=== PATIENT | female | born 1940 | race Caucasian/White ===

== ENCOUNTER → 2017-01-27 | Outpatient (CLI) | payer MEDICARE, BC | END | disposition disaster alternative care site (69) | LOC: GRAD 13:20 | DX: C91.11 Chronic lymphocytic leukemia of B-cell type in remission (principal); C50.919 Malignant neoplasm of unspecified site of unspecified female breast; C71.9 Malignant neoplasm of brain, unspecified; G62.0 Drug-induced polyneuropathy; Z98.890 Other specified postprocedural states ==